=== PATIENT | female | born 1960 | race American Indian/Alaskan Native ===

== ENCOUNTER 2016-11-28 23:02 | Emergency (ER) | payer OTHER ==
[2016-11-29 02:11] LABS: Basophils % (Auto) 0.4 % (0.0-1.8); Eosinophils % (Auto) 0.6 % (0.0-4.3); Hematocrit 37.4 % (30.3-42.9); Hemoglobin 12.2 gm/dl (10.1-14.3); Mean Corpuscular HGB Conc 33 % (30-34); Mean Corpuscular Hemoglobin 27 pg (28-32); Mean Corpuscular Volume 83 fl (79-97); Platelet Count 222 K/mm3 (140-440); Red Cell Distribution Width 12.9 % (13.2-15.2); White Blood Count 14.4 K/mm3 (4.5-11.0)
[2016-11-29 02:37] LABS: Alanine Aminotransferase 25 units/L (7-56); Albumin 4.3 g/dL (3.9-5); Albumin/Globulin Ratio 1.1 %; Alkaline Phosphatase 125 units/L (35-129); Anion Gap 19 mmol/L; BUN/Creatinine Ratio 8.33; Blood Urea Nitrogen 5 mg/dL (7-17); Calcium 9.6 mg/dL (8.4-10.2); Carbon Dioxide 27 mmol/L (22-30); Chloride 100.4 mmol/L (98-107); Glucose 114 mg/dL (65-100); Lipase 20 units/L (13-60); Potassium 3.4 mmol/L (3.6-5.0); Sodium 143 mmol/L (137-145); Total Protein 8.2 g/dL (6.3-8.2)
[2016-11-29 07:49] LABS: Bilirubin,Urine NEG (Negative); Blood,Urine NEG (Negative); Ketones,Urine NEG (Negative); Leukocyte Esterase,Urine NEG (Negative); Mucus,Urine FEW /HPF; Nitrite,Urine NEG (Negative); Urobilinogen,Urine < 2.0 mg/dL (<2.0)
[2016-11-29] MEDS ORDERED: MORPHINE IV ONE (08:32)
--- NOTE | 2016-11-29 08:39 | Emergency Department Report ---
HPI - General Chief Complaint: Abdominal Pain Time Seen by Provider: 11/29/16 08:25 - HPI HPI: This is a 56 year-old female who presents to the emergency department with a one-week history of progressively worsening right lower quadrant and flank abdominal pains. The pain woke her up from sleep yesterday which is what made her decide to come in. It is associated with some nausea and vomiting. She denies any fever, dysuria, vaginal bleeding or discharge. She has a past medical history of migraine headaches, hypertension and a past surgical history of a cholecystectomy and hysterectomy. Her primary care doctor is Dr. Edy Feng but she has not been able see him regarding her symptoms. She did not take anything for symptoms prior to presentation. The pain worsens with laying flat, coughing or any increased abdominal pressure. No recent travel or sick contacts at home. ED Past Medical Hx - Past Medical History Previous Medical History?: Yes Hx Hypertension: Yes Hx Headaches / Migraines: Yes Hx Psychiatric Treatment: Yes (Depression) - Surgical History Past Surgical History?: Yes Hx Cholecystectomy: Yes Additional Surgical History: CS x 1 1989 , gallbladder removal - Social History Smoking Status: Current Every Day Smoker Substance Use Type: None - Medications Home Medications: Home Medications Medication Instructions Recorded Confirmed Last Taken Type ALPRAZolam [Xanax TAB] 1 mg PO BID PRN 11/29/16 11/29/16 11/28/16 History Butalb/Acetamin/Caff 50-325-40 1 tab PO Q6HR PRN 11/29/16 11/29/16 11/28/16 History [Fioricet] Carisoprodol [Soma] 350 mg PO TID 11/29/16 11/29/16 11/28/16 History Diclofenac Submicronized [Zorvolex] 35 mg PO BID 11/29/16 11/29/16 11/28/16 History Estradiol [Estrace] 0 mg PO QDAY 11/29/16 11/29/16 11/28/16 History HYDROcodone/APAP 5-325 [[place]aur[place] 1 each PO Q6HR PRN #10 tablet 11/29/16 Unknown Rx 5/325] Olmesartan (Nf) [Benicar (Nf)] 20 mg PO QDAY 11/29/16 11/29/16 11/28/16 History Zolpidem [Ambien] 10 mg PO QHS 11/29/16 11/29/16 11/28/16 History ED Review of Systems ROS: Stated complaint: ABD PAIN/VOMITING Other details as noted in HPI Comment: All other systems reviewed and negative Constitutional: denies: chills, fever Eyes: denies: eye pain, eye discharge, vision change ENT: denies: ear pain, throat pain Respiratory: denies: cough, shortness of breath, wheezing Cardiovascular: denies: chest pain, palpitations Gastrointestinal: abdominal pain, nausea, vomiting Genitourinary: denies: urgency, dysuria, discharge Musculoskeletal: denies: back pain, joint swelling, arthralgia Skin: denies: rash, lesions Neurological: denies: headache, weakness, paresthesias Physical Exam - Physical Exam Vital Signs: Vital Signs 11/29/16 11/29/16 00:57 06:03 Temperature 98.6 F 98.2 F Pulse Rate 74 68 Respiratory 18 18 Rate Blood Pressure 135/57 145/58 O2 Sat by Pulse 100 100 Oximetry Physical Exam: GENERAL: The patient is well-developed well-nourished. HEENT: Normocephalic. Atraumatic. Extraocular motions are intact. Patient has moist mucous membranes. Pupils equal reactive to light bilaterally. NECK: Supple. Trachea is midline. CHEST/LUNGS: Clear to auscultation. There is no respiratory distress noted. HEART/CARDIOVASCULAR: Regular. There is no tachycardia. There is no gallop rub or murmur. ABDOMEN: Abdomen is soft, nontender. No guarding or rebound tenderness. Right lower quadrant and flank pain is not reproducible to palpation. Patient has normal bowel sounds. There is no abdominal distention. SKIN: Skin is warm and dry. NEURO: The patient is awake, alert, and oriented. The patient is cooperative. The patient has no focal neurologic deficits. The patient has normal speech and gait. MUSCULOSKELETAL: There is no tenderness or deformity. There is no limitation range of motion. There is no evidence of acute injury. ED Course Vital Signs 11/29/16 11/29/16 00:57 06:03 Temperature 98.6 F 98.2 F Pulse Rate 74 68 Respiratory 18 18 Rate Blood Pressure 135/57 145/58 O2 Sat by Pulse 100 100 Oximetry ED Medical Decision Making - Lab Data Result diagrams: 11/29/16 01:26 11/29/16 01:26 - Radiology Data Radiology results: report reviewed CT of the abdomen and pelvis with IV contrast does not show any acute process including no urinary or intestinal obstructions, no nephrolithiasis or signs of colitis. - Medical Decision Making 56-year-old female presents the emergency department with a one-week history of intermittent but progressively worsening right lower quadrant and flank abdominal pain. Vital signs stable throughout ED course including being afebrile. We'll the patient does have a mild leukocytosis of 14,000, the rest of her labs are mostly unremarkable. There is no significant electrolyte abnormalities, renal insufficiency, lupus abnormalities and she has normal belly labs lipase, LFTs and bilirubin. Urinalysis does not show any urinary tract infection. A CT of the abdomen and pelvis with IV contrast was done that does not show any acute process including no etiology of the patient's symptoms. She was given some pain medication and upon reevaluation she is feeling improved. Patient appears safe for discharge home at this time. She was given referrals for primary care and pain medication. She will return to the ER with any worsening of her symptoms or any acute distress. - Differential Diagnosis nephrolithiasis, colitis, UTI, fibroids Critical Care Time: No Critical care attestation.: If time is entered above; I have spent that time in minutes in the direct care of this critically ill patient, excluding procedure time. ED Disposition Clinical Impression: Abdominal pain Qualifiers: Abdominal location: right lower quadrant Qualified Code(s): R10.31 - Right lower quadrant pain Hypertension Qualifiers: Hypertension type: essential hypertension Qualified Code(s): I10 - Essential ( primary) hypertension Disposition: DISCHARGED TO HOME OR SELFCARE Is pt being admited?: No Condition: Stable Instructions: Abdominal Pain (ED), Hypertension (ED) Additional Instructions: Please follow-up with your primary care doctor in the next few days. Return to the emergency department with any worsening of your symptoms or any acute distress. You've been prescribed a medication that is sedating. Therefore this medication cannot be mixed with alcohol, or taken prior to driving, working, or being responsible for children. Prescriptions: HYDROcodone/APAP 5-325 [Maurice 5/325] 1 each PO Q6HR PRN #10 tablet PRN Reason: Pain Referrals: PRIMARY MD STEPHANIE [Primary Care Provider] - 3-5 Days WILBER DESAI MD [Staff Physician] - 3-5 Days Time of Disposition: 10:21
[2016-11-29] MEDS ORDERED: NACL ONE (09:25)
--- NOTE | 2016-11-29 09:58 | Cat Scan Report ---
CT ABDOMEN AND PELVIS WITH CONTRAST INDICATION: RLQ abdominal pain. COMPARISON: None similar. FINDINGS: Abdomen and pelvis CT performed following intravenous administration of 100 cc of Omnipaque 300. LUNG BASES: Top normal heart size. No effusions. Nonspecific distal esophageal wall prominence/thickening, not excluded for gastroesophageal reflux and/or hiatal hernia, amongst others. ABDOMEN: Expected post cholecystectomy biliary tree prominence. CBD approximately 8 mm at the сергей hepatis. Otherwise unremarkable liver, spleen, pancreas, adrenals, nonaneurysmal abdominal aorta, IVC and kidneys. No ascites or size significant adenopathy. Nonopacified GI tract evaluation limited, though grossly nonobstructive. Stomach suboptimally distended with mild exaggerated wall thickness. Normal appendix. Mild outward fascial bowing at the umbilicus. PELVIS: Uterus surgically absent. Few pelvic phleboliths. Grossly unremarkable urinary bladder and nonopacified rectosigmoid. No free fluid or significant adenopathy. Slight spinal degenerative changes. CONCLUSION: No acute CT abnormality with few incidental findings, as above. Thank you for the opportunity to participate in this patient's care.
[2016-11-29 10:52] VITALS: BP 162/72
== END 2016-11-29 10:51 | disposition home or self-care (01) ==
LOC: ED 23:02
DX: R10.31 Right lower quadrant pain (principal); I10 Essential (primary) hypertension; G43.909 Migraine, unspecified, not intractable, without status migrainosus; F32.9 Major depressive disorder, single episode, unspecified; F17.200 Nicotine dependence, unspecified, uncomplicated; Z90.49 Acquired absence of other specified parts of digestive tract
CPT/HCPCS: 36415; 74177; 80053; 81001; 83690; 85025; 96374; 99284; J2270; Q9967

== ENCOUNTER 2018-02-02 11:07 | Outpatient (CLI) | payer OTHER ==
--- NOTE | 2018-02-02 15:11 | Mammography Report ---
BILATERAL DIGITAL SCREENING MAMMOGRAM with CAD: 02/02/18 11:07:00 CLINICAL: Routine screening. COMPARISON:08/04/15 FINDINGS: The breasts are heterogeneously dense, which may obscure small masses. No mass, architectural distortion or suspicious calcifications. IMPRESSION: No mammographic evidence of malignancy. BI-RADS CATEGORY: 1 - - Negative RECOMMENDATION: Routine mammographic screening in one year. COMMENT: Patient follow-up letters are generated by our [employer] application.
== END 2018-02-02 11:08 | disposition home or self-care (01) ==
LOC: MAMMO 11:07
PROVIDERS: ATTEND Internal Medicine
DX: Z12.31 Encounter for screening mammogram for malignant neoplasm of breast (principal); I10 Essential (primary) hypertension; F17.210 Nicotine dependence, cigarettes, uncomplicated; Z90.710 Acquired absence of both cervix and uterus
CPT/HCPCS: 77067

== ENCOUNTER 2020-01-29 10:09 | Emergency (ER) | payer OTHER ==
--- NOTE | 2020-01-29 11:25 | Event Note ---
ED Screening Note ED Screening Note: co weakness bg 80 This initial assessment/diagnostic orders/clinical plan/treatment(s) is/are subject to change based on patients health status, clinical progression and re- assessment by fellow clinical providers in the ED. Further treatment and workup at subsequent clinical providers discretion. Patient/guardian urged not to elope from the ED as their condition may be serious if not clinically assessed and managed. Initial orders include: basic labs ua ekg
--- NOTE | 2020-01-29 12:28 | XRay Report ---
CHEST 2 VIEWS INDICATION / CLINICAL INFORMATION: Shortness of breath. COMPARISON: None available. FINDINGS: SUPPORT DEVICES: None. HEART / MEDIASTINUM: Normal heart size. Atherosclerosis in the thoracic aorta. LUNGS / PLEURA: No significant pulmonary or pleural abnormality. No pneumothorax. ADDITIONAL FINDINGS: No significant additional findings. IMPRESSION: 1. No acute findings. Signer Name: Deepak Jc MD Signed: 01/29/2020 12:24 PM Workstation Name: [id number]
[2020-01-29 13:10] LABS: Basophils # (Auto) 0.1 K/mm3 (0.0-0.1); Basophils % (Auto) 0.7 % (0.0-1.8); Eosinophils # (Auto) 0.2 K/mm3 (0.0-0.4); Eosinophils % (Auto) 1.9 % (0.0-4.3); Hematocrit 32.5 % (30.3-42.9); Hemoglobin 10.8 gm/dl (10.1-14.3); Lymphocytes % (Auto) 22.7 % (13.4-35.0); Mean Corpuscular HGB Conc 33 % (30-34); Mean Corpuscular Volume 83 fl (79-97); Monocytes # (Auto) 0.7 K/mm3 (0.0-0.8); Monocytes % (Auto) 8.5 % (0.0-7.3); Platelet Count 301 K/mm3 (140-440); Red Blood Count 3.91 M/mm3 (3.65-5.03)
[2020-01-29 13:47] LABS: Alanine Aminotransferase 9 units/L (7-56); Albumin 4.6 g/dL (3.9-5); BUN/Creatinine Ratio 17; Blood Urea Nitrogen 24 mg/dL (7-17); Calcium 9.7 mg/dL (8.4-10.2); Hemolysis Index 6
[2020-01-29] MEDS ORDERED: SODIUM CHLORIDE 0.9% 1000 ML 1,000 ML IV ONE ×2 (14:47→17:31)
--- NOTE | 2020-01-29 15:25 | Emergency Department Report ---
ED General Adult HPI - General Chief complaint: Dizziness Stated complaint: DEHYDRATION Time Seen by Provider: 01/29/20 11:09 Source: patient Mode of arrival: Ambulatory Limitations: No Limitations - History of Present Illness Initial comments: 59-year-old -[place] female patient with history of hypertension, migraines, and borderline diabetes presents with complaints of diarrhea and nausea x1 week now with dizziness and weakness since yesterday. She describes the dizziness as lightheadedness and denies any chest pain, shortness of breath, cough, abdominal pain, vomiting, hematochezia/melena, vision changes, numbness/tingling/weakness in her limbs, confusion, or difficulty with speech/ambulation. Patient states she does not have any prior history of IBS/IBD and denies being on any new medications/supplements or new diet. Patient states she only has a bowel movement when she eats, however she was able to tolerate boiled eggs yesterday without having any loose stools. She denies any recent antibiotic use or her stools being foul-smelling. Patient also admits to decreased urination over the past few days, however denies hematur ia/dysuria. - Related Data Home Medications Medication Instructions Recorded Confirmed Last Taken ALPRAZolam [Xanax TAB] 1 mg PO BID PRN 11/29/16 11/29/16 11/28/16 Butalb/Acetamin/Caff 50-325-40 1 tab PO Q6HR PRN 11/29/16 11/29/16 11/28/16 [Fioricet] Diclofenac Submicronized [Zorvolex] 35 mg PO BID 11/29/16 11/29/16 11/28/16 Olmesartan (Nf) [Benicar (Nf)] 20 mg PO QDAY 11/29/16 11/29/16 11/28/16 Zolpidem [Ambien] 10 mg PO QHS 11/29/16 11/29/16 11/28/16 carisoprodoL [Soma] 350 mg PO TID 11/29/16 11/29/16 11/28/16 estradioL [Estrace] 0 mg PO QDAY 11/29/16 11/29/16 11/28/16 Previous Rx's Medication Instructions Recorded Last Taken Type HYDROcodone/APAP 5-325 [[place] 1 each PO Q6HR PRN #10 tablet 11/29/16 Unknown Rx 5/325] Loperamide [Imodium] 2 mg PO ONCE PRN #10 capsule 01/29/20 Unknown Rx Allergies Allergy/AdvReac Type Severity Reaction Status Date / Time No Known Allergies Allergy Verified 02/05/15 01:08 ED Review of Systems ROS: Stated complaint: DEHYDRATION Other details as noted in HPI Constitutional: denies: chills, fever Eyes: denies: vision change Respiratory: denies: cough, shortness of breath Cardiovascular: denies: chest pain, palpitations Gastrointestinal: nausea, diarrhea. denies: abdominal pain, vomiting, constipation, hematemesis, melena, hematochezia Genitourinary: denies: urgency, dysuria, frequency, hematuria, discharge, abnormal menses Musculoskeletal: denies: back pain, joint swelling Neurological: headache (States mild and feels like her normal migraine-requests Fioricet) Hematological/Lymphatic: denies: easy bleeding ED Past Medical Hx - Past Medical History Hx Hypertension: Yes Hx Headaches / Migraines: Yes Hx Psychiatric Treatment: Yes (Depression) - Surgical History Hx Cholecystectomy: Yes Additional Surgical History: CS x 1 1989 , gallbladder removal 81 - Social History Smoking Status: Current Every Day Smoker Substance Use Type: None - Medications Home Medications: Home Medications Medication Instructions Recorded Confirmed Last Taken Type ALPRAZolam [Xanax TAB] 1 mg PO BID PRN 11/29/16 11/29/16 11/28/16 History Butalb/Acetamin/Caff 50-325-40 1 tab PO Q6HR PRN 11/29/16 11/29/16 11/28/16 History [Fioricet] Diclofenac Submicronized [Zorvolex] 35 mg PO BID 11/29/16 11/29/16 11/28/16 History HYDROcodone/APAP 5-325 [[place] 1 each PO Q6HR PRN #10 tablet 11/29/16 Unknown Rx 5/325] Olmesartan (Nf) [Benicar (Nf)] 20 mg PO QDAY 11/29/16 11/29/16 11/28/16 History Zolpidem [Ambien] 10 mg PO QHS 11/29/16 11/29/16 11/28/16 History carisoprodoL [Soma] 350 mg PO TID 11/29/16 11/29/16 11/28/16 History estradioL [Estrace] 0 mg PO QDAY 11/29/16 11/29/16 11/28/16 History Loperamide [Imodium] 2 mg PO ONCE PRN #10 capsule 01/29/20 Unknown Rx ED Physical Exam - General Limitations: No Limitations General appearance: alert, in no apparent distress - Head Head exam: Present: atraumatic, normocephalic - Eye Eye exam: Present: normal appearance. Absent: scleral icterus - ENT ENT exam: Present: normal exam - Neck Neck exam: Present: normal inspection, full ROM. Absent: tenderness - Respiratory Respiratory exam: Present: normal lung sounds bilaterally. Absent: respiratory distress, chest wall tenderness - Cardiovascular Cardiovascular Exam: Present: regular rate, normal rhythm. Absent: systolic murmur, diastolic murmur, rubs, gallop - GI/Abdominal GI/Abdominal exam: Present: soft, hyperactive bowel sounds. Absent: distended, tenderness, guarding, rebound, rigid - Extremities Exam Extremities exam: Present: normal inspection - Back Exam Back exam: Present: normal inspection - Neurological Exam Neurological exam: Present: alert, oriented X3, CN II-XII intact, normal gait. Absent: motor sensory deficit - Expanded Neurological Exam Expanded Cerebellar function: Romberg: Normal Motor strength exam: RUE: 5, LUE: 5, RLE: 5, LLE: 5 - Psychiatric Psychiatric exam: Present: normal affect, normal mood - Skin Skin exam: Present: warm, dry, intact, normal color. Absent: rash ED Medical Decision Making - Lab Data Result diagrams: 01/29/20 11:49 01/29/20 16:47 - EKG Data Rate: bradycardia (61) - EKG Data Interpretation: normal EKG - Radiology Data Radiology results: report reviewed CHEST 2 VIEWS INDICATION / CLINICAL INFORMATION: Shortness of breath. COMPARISON: None available. FINDINGS: SUPPORT DEVICES: None. HEART / MEDIASTINUM: Normal heart size. Atherosclerosis in the thoracic aorta. LUNGS / PLEURA: No significant pulmonary or pleural abnormality. No pn eumothorax. ADDITIONAL FINDINGS: No significant additional findings. IMPRESSION: 1. No acute findings. - Medical Decision Making Patient here with complaints of dizziness and fatigue for the past 2 days after having diarrhea for the past week. She denies any red flag symptoms. Physical exam is benign. White count is normal CBC. ESTHER noted on CMP with a creatinine = 1.4 and GFR = 46. Patient denied any previous CKD. After 1 L saline bolus, creatinine now 1 and GFR >60. No orthostatic hypotension noted. Patient's vitals are normal and she is well-appearing. Patient is stable for discharge home. Discussed need for follow-up with PCP and possibly GI if her diarrhea continues, COVID testing, and strict return precautions in great detail with patient who verbalized understanding. Also discussed in detail the importance of hydration with Pedialyte and water. Critical care attestation.: If time is entered above; I have spent that time in minutes in the direct care of this critically ill patient, excluding procedure time. ED Disposition Clinical Impression: Diarrhea with dehydration, Acute prerenal failure Disposition: TO HOME OR SELFCARE Is pt being admited?: No Condition: Stable Instructions: Acute Diarrhea (ED), Dehydration (ED) Prescriptions: Loperamide [Imodium] 2 mg PO ONCE PRN #10 capsule PRN Reason: Diarrhea Referrals: PEGGY CROFT MD [Primary Care Provider] - 3-5 Days [facility] [Provider Group] - 3-5 Days
[2020-01-29] MEDS ORDERED: BUTALB/ACETAMINOPHEN/CAFFEINE TAB PO ONE (16:48)
[2020-01-29 17:20] LABS: BUN/Creatinine Ratio 20; Blood Urea Nitrogen 20 mg/dL (7-17); Calcium 8.9 mg/dL (8.4-10.2); Hemolysis Index 1
[2020-01-29 17:59] LABS: Bilirubin,Urine NEG (Negative); Blood,Urine NEG (Negative); Color,Urine Yellow (Yellow); Mucus,Urine FEW /HPF; Protein,Urine <15 mg/dL mg/dL (Negative); Urobilinogen,Urine < 2.0 mg/dL (<2.0)
[2020-01-29 18:01] VITALS: BP 124/53
== END 2020-01-29 18:53 | disposition home or self-care (01) ==
LOC: ED 10:09
DX: N17.8 Other acute kidney failure (principal); E86.0 Dehydration; I10 Essential (primary) hypertension; G43.909 Migraine, unspecified, not intractable, without status migrainosus; F32.9 Major depressive disorder, single episode, unspecified; F17.200 Nicotine dependence, unspecified, uncomplicated; Z98.890 Other specified postprocedural states; Z79.899 Other long term (current) drug therapy
CPT/HCPCS: 36415; 71046; 80048; 80053; 81001; 84484; 85025; 93005; 96360; 96361; 99284; J7030

== ENCOUNTER 2021-01-04 19:31 | Emergency (ER) | payer OTHER ==
[2021-01-04 19:42] VITALS: BP 124/55
--- NOTE | 2021-01-04 21:11 | Emergency Department Report ---
Minor Respiratory - HPI Chief Complaint: Upper Respiratory Infection Stated Complaint: SORE THROAT/COUGHING/EMESIS Time Seen by Provider: 01/04/21 21:06 Duration: 2 Days Pain Location: Throat, Chest Minor Respiratory: Yes Sore Throat, Yes Able to Tolerate Fluids, Yes Cough, Yes Chest Pain (With cough), Yes Fever (Low-grade), No Rhinorrhea, No Ear Pain, No Shortness of Breath ED Review of Systems ROS: Stated complaint: SORE THROAT/COUGHING/EMESIS Other details as noted in HPI Comment: All other systems reviewed and negative Constitutional: fever ENT: throat pain Respiratory: cough ED Past Medical Hx - Past Medical History Previous Medical History?: Yes Hx Hypertension: Yes Hx Headaches / Migraines: Yes Hx Psychiatric Treatment: Yes (Depression) - Surgical History Hx Cholecystectomy: Yes Additional Surgical History: CS x 1 1989 , gallbladder removal - Social History Smoking Status: Current Every Day Smoker Substance Use Type: None - Medications Home Medications: Home Medications Medication Instructions Recorded Confirmed Last Taken Type ALPRAZolam [Xanax TAB] 1 mg PO BID PRN 11/29/16 11/29/16 11/28/16 History Butalb/Acetamin/Caff 50-325-40 1 tab PO Q6HR PRN 11/29/16 11/29/16 11/28/16 History [Fioricet] Diclofenac Submicronized [Zorvolex] 35 mg PO BID 11/29/16 11/29/16 11/28/16 History HYDROcodone/APAP 5-325 [[place] 1 each PO Q6HR PRN #10 tablet 11/29/16 Unknown Rx 5/325] Olmesartan (Nf) [Benicar (Nf)] 20 mg PO QDAY 11/29/16 11/29/16 11/28/16 History Zolpidem (Nf) [Ambien] 10 mg PO QHS 11/29/16 11/29/16 11/28/16 History carisoprodoL [Soma] 350 mg PO TID 11/29/16 11/29/16 11/28/16 History estradioL [Estrace] 0 mg PO QDAY 11/29/16 11/29/16 11/28/16 History Loperamide [Imodium] 2 mg PO ONCE PRN #10 capsule 01/29/20 Unknown Rx Azithromycin [Zithromax Tri-Aguila] 500 mg PO QDAY #3 tablet 01/04/21 Unknown Rx Benzonatate [Tessalon Perles] 100 mg PO Q8HR PRN #15 capsule 01/04/21 Unknown Rx Minor Respiratory Exam - Exam General: Vital signs noted. No distress. Alert and acting appropriately. HEENT: Yes Pharyngeal Erythema, Yes Pharyngeal Exudates, Yes Moist Mucous Membranes, No Conjuctival Injection, No Frontal Tenderness, No Maxillary Tenderness Neck: Yes Supple, No Adenopathy Lungs: No Good Air Exchange, No Wheezes, No Ronchi, No Stridor, No Cough, No Labored Respirations, No Retractions, No Use of Accessory Muscles, No Other Abnormal Lung Sounds Heart: No Regular (Tachycardic) Abdomen: Yes Normal Bowel Sounds, No Tenderness, No Peritoneal Signs Skin: No Rash, No Edema Neurologic: Alert and oriented, no deficits. Musculoskeletal: Unremarkable. ED Course Vital Signs 01/04/21 19:40 Temperature 99.5 F Pulse Rate 104 H Respiratory 20 Rate Blood Pressure 124/55 O2 Sat by Pulse 98 Oximetry Critical care attestation.: If time is entered above; I have spent that time in minutes in the direct care of this critically ill patient, excluding procedure time. ED Disposition Clinical Impression: Upper respiratory infection, acute Disposition: DC-01 TO HOME OR SELFCARE Is pt being admited?: No Does the pt Need Aspirin: No Condition: Stable Instructions: Upper Respiratory Infection, Adult, [id number] Additional Instructions: Complete antibiotics as prescribed cough medication as needed. Is very important for you to increase your fluid intake advance her diet as tolerated. Prescriptions: Benzonatate [Tessalon Perles] 100 mg PO Q8HR PRN #15 capsule PRN Reason: Cough Azithromycin [Zithromax Tri-Aguila] 500 mg PO QDAY #3 tablet Referrals: ANITRA MELGAR MD [Staff Physician] - 3-5 Days Forms: Work/School Release Form(ED)
== END 2021-01-04 21:10 | disposition home or self-care (01) ==
LOC: ED 19:31
DX: J06.9 Acute upper respiratory infection, unspecified (principal); I10 Essential (primary) hypertension; F32.9 Major depressive disorder, single episode, unspecified; G43.909 Migraine, unspecified, not intractable, without status migrainosus; F17.200 Nicotine dependence, unspecified, uncomplicated; Z98.890 Other specified postprocedural states; Z79.899 Other long term (current) drug therapy
CPT/HCPCS: 99282

== ENCOUNTER 2021-03-25 10:27 | Outpatient (CLI) | payer OTHER ==
--- NOTE | 2021-03-25 11:58 | Mammography Report ---
DIGITAL SCREENING MAMMOGRAM WITH CAD, 03/25/2021 CLINICAL INFORMATION / INDICATION: Routine screening mammography. SCREENING MAMMOGRAM TECHNIQUE: Digital bilateral 2D mammography was obtained in the craniocaudal and mediolateral obliqu e projections. This examination was interpreted with the benefit of Computer-Aided Detection analysis . COMPARISON: 02/02/2018 FINDINGS: Breast Density: There are scattered areas of fibroglandular density. No dominant mass, suspicious calcifications, or architectural distortion in either breast. Stable small right nodule. IMPRESSION: No mammographic evidence of malignancy. Follow up recommendation: Routine yearly BI-RADS Category 2: Benign. A "normal" or negative report should not discourage follow up or biopsy of a clinically significant f inding. A written summary of these findings will be mailed to the patient. The patient will be entered into a mammography reporting system which will generate a reminder letter for the patient's next appointmen t at the appropriate interval. The [employer] recommends yearly mammograms starting at age 40 and continuing as l edwina as a woman is in good health. Breast MRI is recommended for women with an approximate 20-25% or greater lifetime risk of breast cancer, including women with a strong family history of breast or ova leandro cancer or who have been treated for Hodgkin's disease. Signer Name: Derik Yuen MD Signed: 03/25/2021 11:54 AM Workstation Name: [id number]
== END 2021-03-25 10:28 | disposition home or self-care (01) ==
LOC: MAMMO 10:27
PROVIDERS: ATTEND Family Medicine
DX: Z12.31 Encounter for screening mammogram for malignant neoplasm of breast (principal)
CPT/HCPCS: 77067